=== PATIENT | female | born 1940 | race Caucasian/White ===

== ENCOUNTER → 2018-03-25 13:45 | Outpatient (CLI) | payer OTHER, SELFPAY ==
--- NOTE | 2018-03-25 | DI.RAD.S_ITS ---
PROCEDURE: XR KNEE RT 3V INDICATIONS: PAIN IN RT KNEE TECHNIQUE: 3 views of the knee were acquired. COMPARISON: None. FINDINGS: Bones: No fractures or dislocations. No suspicious bony lesions. Soft tissues: No joint effusion. No suspicious soft tissue calcifications. IMPRESSION: No trauma found. Slight medial compartment joint space thinning incidentally noted. Dictated by: Shree Sanz M.D. on 03/25/2018 at 14:22 Approved by: Shree Sanz M.D. on 03/25/2018 at 14:23
== END ==
PROVIDERS: PCP Physician Assistant; Visit Provider Physician Assistant
DX: M25.561 Pain in right knee (principal)
CPT/HCPCS: 73562

== ENCOUNTER 2018-05-17 09:45 | Outpatient (RCR) | payer OTHER, SELFPAY ==
--- NOTE | 2018-05-06 15:28 | PT.OPPOC ---
Current Diagnoses Pain in right knee (05/06/18) Provider Visit Care Team Role Provider Type Rowena Lundy PA-C Attending Provider Advanced Shoe Lining Fitter Primary Care Provider Specialty: Internal Medicine Address: [address] [place] [address], [id number] Email: Plan Of Care PT-OP-T Assessment and Plan Start: 05/06/18 07:35 Freq: Status: Active Protocol: Document 05/06/18 13:45 AMB (Rec: 05/08/18 15:26 AMB [email or web address]) Physical Therapy Assessment Rehab Potential Rehabilitation Potential Good Evaluation Complexity Number of Personal Factors/Comorbidities 1-2 Number of Body Systems Impaired 3 Clinical Presentation at Evaluation Stable Impairments Impairments Pain ROM Strength Goals Three Impairment Gait Manager Business Information Goal (LTG) Alf will walk for 3 miles with 1/10 knee pain or less. LTG Duration 10 weeks Two Impairment Strength Short Term Goal (STG) Alf will increase her strength so that she can perform a full squat without an increase in knee pain. STG Duration 5 weeks Manager Business Information Goal (LTG) Alf will increase her strength so that she can ascend and descend a flight of stairs with 1/10 knee pain or less. LTG Duration 10 weeks One Impairment ROM Short Term Goal (STG) Alf will increase her right knee AROM to 135 degrees of flexion. STG Duration 5 weeks Assessment Summary Assessment Alf attends physical therapy with likely patellar tendonitis. She does have right quad weakness due to inhibition from pain, difficulty with squatting, and pain with extended walking/ hiking. She will benefit from physical therapy to reduce the inflammation and improve her strength so that she can return to her previoulsy active lifestyle. Physical Therapy Plan Frequency and Duration Frequency of Treatment 1x/Week Duration of Treatment 10 weeks Plan of Care Start Date 05/06/18 Plan of Care End Date 07/15/18 Therapeutic Interventions Therapeutic Interventions Gait Training Home Exercise Program Joint Mobilizations Manual Therapy Neuromuscular Re-education Self-Care/Home Management Taping Therapeutic Activities Therapeutic Exercises Modalities Cold Pack/Ice Massage Electric Stimulation Hot Packs Ultrasound Next Visit Focus/Plan Next Note Type Treatment Note Next Visit Plan Quad strengthening without increasing inflammation/ irritation of right knee. Can look at hip/foot mechanics as necessary. Plan of Care Dates Plan of Care Start Date 05/06/18 Plan of Care End Date 07/15/18 Please Sign and Return: I have reviewed this Plan of Care and certify that the skilled therapy services above are required to meet the patient?s needs. Physician Signature Date Printed Name and Credentials Clinical Instructor Signature Printed Name and Credentials
--- NOTE | 2018-05-08 15:27 | PT.OIE ---
Current Diagnoses Pain in right knee (05/06/18) Provider Visit Care Team Role Provider Type Rowena Lundy PA-C Attending Provider Advanced Electrician'S Assistant Primary Care Provider Specialty: Internal Medicine Address: [address] [place] [address], [facility] Email: Physical Therapy Initial Evaluation PT-OP-A Visit Information Start: 05/06/18 07:35 Freq: Status: Active Protocol: Document 05/06/18 13:45 AMB (Rec: 05/08/18 15:11 AMB [email or web address]) Out-Patient Physical Therapy Visit Information Visit Information Visit Type Initial Evaluation Visit Start Time 13:45 Visit Stop Time 14:30 Total Visit Minutes 45 Visit Number 1 PT-OP-B Current Condition Start: 05/06/18 07:35 Freq: Status: Active Protocol: Document 05/06/18 13:45 AMB (Rec: 05/08/18 15:11 AMB [email or web address]) Current Condition History of Current Condition Onset Date 2 months ago Current Complaints Right knee pain History of Current Condition Alf attends physical therapy due to right knee pain that began after lifting boxes to clean up her brother' s house and going up and down stairs all day. It got better for awhile but now it is plateaued. Usually she works out with a personal support worker 2x /week, and walks, but she has had to reduce her walking due to the pain. Bending the knee and squatting hurt. Denies popping, locking, clicking. Prior Treatments and Tests X-ray showed slight medial joint space narrowing, otherwise negative Prior Functional Status Baseline Function- ADL's Independent Baseline Function- Mobility Independent Baseline Function- Recreation/Hobbies Walking 5 miles/day Current Functional Impairments (Reported) Functional Limitations- Recreation/ Limits walking to at most 1 Hobbies mile/day due to pain Personal Factors Other Personal Factors That May Effect Distant history of breast Therapy/Recovery cancer with mastectomy PT-OP-C Subjective Start: 05/06/18 07:35 Freq: Status: Active Protocol: Document 05/06/18 13:45 AMB (Rec: 05/08/18 15:11 AMB [email or web address]) Patient Questionnaires Lower Extremity Functional Scale LEFS Impairment 40 to 59% Impaired (Score 32- 47) OP-PT Pain Assessment Pain Assessment Grid Paper Pain Assessment Grid Completed Yes Location Right Anterior Knee Pain Location Details patellar Intensity 3 Scale Used Numeric (1 - 10) PT-OP-G Mobility & Gait Start: 05/06/18 07:35 Freq: Status: Active Protocol: Document 05/06/18 13:45 AMB (Rec: 05/08/18 15:17 AMB [email or web address]) OP Gait Assessment Gait Gait Assistance Required: Independent Assistive Devices Assistive Device None Gait Deviations General Gait Pattern Within Normal Limits PT-OP-J Posture/Palpation/Skin Start: 05/06/18 07:35 Freq: Status: Active Protocol: Document 05/06/18 13:45 AMB (Rec: 05/08/18 15:17 AMB [email or web address]) Palpation Assessment Location One Palpation Location R knee Palpation Details mild tenderness at patellar tendon, no pain with patellar mobilization, no palpable edema posteriorly in comparison to the left. PT-OP-K Range of Motion Start: 05/06/18 07:35 Freq: Status: Active Protocol: Document 05/06/18 13:45 AMB (Rec: 05/08/18 15:17 AMB [email or web address]) Knee Goniometric Range of Motion Knee Measured in Degrees Right Flexion Active (degrees) 130 Extension Active (degrees) 0 Left Flexion Active (degrees) 135 Extension Active (degrees) 0 PT-OP-L Special Tests Start: 05/08/18 15:12 Freq: Status: Active Protocol: Document 05/06/18 13:45 AMB (Rec: 05/08/18 15:17 AMB [email or web address]) Special Tests Knee Special Tests Golden Test Test Results negative PT-OP-M Strength Start: 05/06/18 07:35 Freq: Status: Active Protocol: Document 05/06/18 13:45 AMB (Rec: 05/08/18 15:17 AMB [email or web address]) Knee Strength Knee Manual Muscle Testing Right Flexion (S2) 4+ Good+ Extension (L3) 4 Good Comments painful with extension Left Flexion (S2) 5 Normal Extension (L3) 5 Normal PT-OP-Q Treatments Start: 05/06/18 07:35 Freq: Status: Active Protocol: Document 05/06/18 13:45 AMB (Rec: 05/08/18 15:19 AMB [email or web address]) Therapeutic Exercises Supine Exercises 3 Supine Exercise Name bridge Reps/Minutes 2x10 2 Supine Exercise Name single knee to chest Reps/Minutes 30x2 1 Supine Exercise Name hamstring stretch Reps/Minutes 30x2 Standing Exercises 1 Standing Exercise Name wall squat Reps/Minutes 5x2 Manual Therapy Treatment Taping 1 Body Location R patellar tendon Type of Tape Kinesio Tape Comments I strip PT-OP-T Assessment and Plan Start: 05/06/18 07:35 Freq: Status: Active Protocol: Document 05/06/18 13:45 AMB (Rec: 05/08/18 15:26 AMB [email or web address]) Physical Therapy Assessment Rehab Potential Rehabilitation Potential Good Evaluation Complexity Number of Personal Factors/Comorbidities 1-2 Number of Body Systems Impaired 3 Clinical Presentation at Evaluation Stable Impairments Impairments Pain ROM Strength Goals Three Impairment Gait Customer Experience Leader Goal (LTG) Alf will walk for 3 miles with 1/10 knee pain or less. LTG Duration 10 weeks Two Impairment Strength Short Term Goal (STG) Alf will increase her strength so that she can perform a full squat without an increase in knee pain. STG Duration 5 weeks Skilled Nursing Goal (LTG) Alf will increase her strength so that she can ascend and descend a flight of stairs with 1/10 knee pain or less. LTG Duration 10 weeks One Impairment ROM Short Term Goal (STG) Alf will increase her right knee AROM to 135 degrees of flexion. STG Duration 5 weeks Assessment Summary Assessment Alf attends physical therapy with likely patellar tendonitis. She does have right quad weakness due to inhibition from pain, difficulty with squatting, and pain with extended walking/ hiking. She will benefit from physical therapy to reduce the inflammation and improve her strength so that she can return to her previously active lifestyle. Physical Therapy Plan Frequency and Duration Frequency of Treatment 1x/Week Duration of Treatment 10 weeks Plan of Care Start Date 05/06/18 Plan of Care End Date 07/15/18 Therapeutic Interventions Therapeutic Interventions Gait Training Home Exercise Program Joint Mobilizations Manual Therapy Neuromuscular Re-education Self-Care/Home Management Taping Therapeutic Activities Therapeutic Exercises Modalities Cold Pack/Ice Massage Electric Stimulation Hot Packs Ultrasound Next Visit Focus/Plan Next Note Type Treatment Note Next Visit Plan Quad strengthening without increasing inflammation/ irritation of right knee. Can look at hip/foot mechanics as necessary.
--- NOTE | 2018-05-17 16:21 | PT.OTN ---
Current Diagnoses Pain in right knee (05/17/18) Physical Therapy Treatment Note PT-OP-A Visit Information Start: 05/06/18 07:35 Freq: Status: Active Protocol: Document 05/17/18 09:45 AMB (Rec: 05/17/18 10:34 AMB [email or web address]) Out-Patient Physical Therapy Visit Information Visit Information Visit Type Discharge Summary Visit Start Time 09:45 Visit Stop Time 10:30 Total Visit Minutes 45 Visit Number 2 PT-OP-B Current Condition Start: 05/06/18 07:35 Freq: Status: Active Protocol: Document 05/06/18 13:45 AMB (Rec: 05/08/18 15:11 AMB [email or web address]) Current Condition History of Current Condition Onset Date 2 months ago Current Complaints Right knee pain History of Current Condition Alf attends physical therapy due to right knee pain that began after lifting boxes to clean up her brother' s house and going up and down stairs all day. It got better for awhile but now it is platueaed. Usually she works out with a service trainer 2x /week, and walks, but she has had to reduce her walking due to the pain. Bending the knee and squatting hurt. Denies popping, locking, clicking. Prior Treatments and Tests X-ray showed slight medial joint space narrowing, otherwise negative Prior Functional Status Baseline Function- ADL's Independent Baseline Function- Mobility Independent Baseline Function- Recreation/Hobbies Walking 5 miles/day Current Functional Impairments (Reported) Functional Limitations- Recreation/ Limits walking to at most 1 Hobbies mile/day due to pain Personal Factors Other Personal Factors That May Effect Distant history of breast Therapy/Recovery cancer with mastectomy PT-OP-C Subjective Start: 05/06/18 07:35 Freq: Status: Active Protocol: Document 05/17/18 09:45 AMB (Rec: 05/17/18 10:34 AMB [email or web address]) OP-PT Subjective Patient Comments Patient Comments Pt reports she is doing well, she is back to walking 5 miles without pain. She feel the tape was helpful and is ready to be discharged. PT-OP-G Mobility & Gait Start: 05/06/18 07:35 Freq: Status: Active Protocol: Document 05/06/18 13:45 AMB (Rec: 05/08/18 15:17 AMB [email or web address]) OP Gait Assessment Gait Gait Assistance Required: Independent Assistive Devices Assistive Device None Gait Deviations General Gait Pattern Within Normal Limits PT-OP-J Posture/Palpation/Skin Start: 05/06/18 07:35 Freq: Status: Active Protocol: Document 05/06/18 13:45 AMB (Rec: 05/08/18 15:17 AMB [email or web address]) Palpation Assessment Location One Palpation Location R knee Palpation Details mild tenderness at patellar tendon, no pain with patellar mobilization, no palpable edema posteriorly in comparsion to the left. PT-OP-K Range of Motion Start: 05/06/18 07:35 Freq: Status: Active Protocol: Document 05/06/18 13:45 AMB (Rec: 05/08/18 15:17 AMB [email or web address]) Knee Goniometric Range of Motion Knee Measured in Degrees Right Flexion Active (degrees) 130 Extension Active (degrees) 0 Left Flexion Active (degrees) 135 Extension Active (degrees) 0 PT-OP-L Special Tests Start: 05/08/18 15:12 Freq: Status: Active Protocol: Document 05/06/18 13:45 AMB (Rec: 05/08/18 15:17 AMB [email or web address]) Special Tests Knee Special Tests Golden Test Test Results negative PT-OP-M Strength Start: 05/06/18 07:35 Freq: Status: Active Protocol: Document 05/06/18 13:45 AMB (Rec: 05/08/18 15:17 AMB [email or web address]) Knee Strength Knee Manual Muscle Testing Right Flexion (S2) 4+ Good+ Extension (L3) 4 Good Comments painful with extension Left Flexion (S2) 5 Normal Extension (L3) 5 Normal PT-OP-Q Treatments Start: 05/06/18 07:35 Freq: Status: Active Protocol: Document 05/17/18 09:45 AMB (Rec: 05/17/18 10:34 AMB [email or web address]) Cardio Equipment Treadmill Duration (Minutes) 5 Speed 2 Incline 0 Therapeutic Exercises Supine Exercises 2 Supine Exercise Name single knee to chest Reps/Minutes 30x2 1 Supine Exercise Name hamstring stretch Reps/Minutes 30x2 Standing Exercises 5 Standing Exercise Name stair step ups Reps/Minutes 2x10 4 Standing Exercise Name forward lunges Reps/Minutes 2x10 3 Standing Exercise Name squats Reps/Minutes 2x10 2 Standing Exercise Name calf stretch Reps/Minutes 30x2 ARCHIE PT-OP-T Assessment and Plan Start: 05/06/18 07:35 Freq: Status: Active Protocol: Document 05/17/18 09:45 AMB (Rec: 05/17/18 10:34 AMB [email or web address]) Physical Therapy Assessment Goals Three Impairment Gait Half-Way Goal (LTG) Alf will walk for 3 miles with 1/10 knee pain or less. LTG Duration MET Two Impairment Strength Short Term Goal (STG) Alf will increase her strength so that she can perform a full squat without an increase in knee pain. STG Duration MET Half-Way Goal (LTG) Alf will increase her strength so that she can ascend and descend a flight of stairs with 1/10 knee pain or less. LTG Duration MET One Impairment ROM Short Term Goal (STG) Alf will increase her right knee AROM to 135 degrees of flexion. STG Duration Partially met, PROM 135 Assessment Summary Assessment Alf feels that she is ready for discharge. She denies pain with walking, stairs. She has light discomfort with lunges and squats, but feels that she can work through that with her regular exercise, she does not have any lingering discomfort with the squats after she is done doing them. Having met all her goals she is now discharged. Physical Therapy Plan Discharge Physical Therapy Discharge Reasons Goals Met
== END 2018-05-17 12:19 | disposition home or self-care (01) ==
LOC: PHYS 09:45
PROVIDERS: PCP Physician Assistant; Visit Provider Physician Assistant
DX: M25.561 Pain in right knee (principal)
CPT/HCPCS: 97110; 97161

== ENCOUNTER → 2019-02-06 15:04 | Outpatient (ROUT) | payer OTHER, SELFPAY ==
[2019-02-06 15:41] LABS: Add Manual Diff / Slide Review NO; Basophils Absolute Auto 0 /uL (0-100); Basophils Percent Auto 0.8 % (0-2); Eosinophils Absolute Auto 100 /uL (0-450); Hematocrit 38.6 % (36-46); Hemoglobin 13.2 g/dL (12.0-16.0); Lymphocytes Absolute Auto 700 /uL (1100-4500); Lymphocytes Percent Auto 14.1 % (25-40); Mean Corpuscular HGB Conc 34.1 % (30-36); Monocytes Absolute Auto 400 /uL (0-900); Monocytes Percent Auto 7.1 % (3-14); Neutrophils Absolute Auto 4000 /uL (1500-7000); Platelet Count 202 X10^3/uL (150-400); Red Blood Cell Count 4.24 X10^6/uL (4.0-5.2); White Blood Cell Count 5.2 X10^3/uL (4.5-11.0)
[2019-02-06 16:03] LABS: Alanine Aminotransferase 12 IU/L (<35); Albumin Globulin Ratio 1.7 (1.0-2.8); Alkaline Phosphatase 72 U/L (38-126); Aspartate Aminotransferase 20 IU/L (14-36); Bilirubin Total 0.3 mg/dL (0.2-1.3); Blood Urea Nitrogen 20 mg/dL (7-17); Calcium 9.5 mg/dL (8.4-10.2); Carbon Dioxide 31 mmol/L (22-32); Chloride 105 mmol/L (98-107); Cholesterol 147 mg/dL (140-199); Estimated Glomerular Filt Rate 53.8 mL/min (>60); Globulin 2.3 g/dL (1.7-4.1); Glucose 89 mg/dL (80-110); HDL Cholesterol 41 mg/dL (40-60); HEMOLYSIS < 15 (0-50); LDL Cholesterol Calculated 85 mg/dL (<100); Potassium 4.3 mmol/L (3.4-5.1); Sodium 141 mmol/L (137-145); Total Protein 6.3 g/dL (6.3-8.2); Triglycerides 106 mg/dL (35-150)
== END ==
PROVIDERS: PCP Physician Assistant; Visit Provider Physician Assistant
DX: E78.2 Mixed hyperlipidemia (principal)
CPT/HCPCS: 80053; 80061; 85025

== ENCOUNTER → 2019-02-20 11:02 | Outpatient (CLI) | payer OTHER, SELFPAY ==
[2019-02-20 12:18] LABS: Add Manual Diff / Slide Review NO; Basophils Absolute Auto 0 /uL (0-100); Basophils Percent Auto 0.7 % (0-2); Eosinophils Absolute Auto 0 /uL (0-450); Eosinophils Percent Auto 0.9 % (2-4); Hematocrit 40.9 % (36-46); Hemoglobin 13.9 g/dL (12.0-16.0); Lymphocytes Absolute Auto 1000 /uL (1100-4500); Lymphocytes Percent Auto 19.1 % (25-40); Mean Corpuscular Hemoglobin 31.1 PG (26-34); Mean Corpuscular Volume 91.7 fL (80-100); Monocytes Absolute Auto 400 /uL (0-900); Monocytes Percent Auto 7.8 % (3-14); Neutrophils Absolute Auto 3800 /uL (1500-7000); Neutrophils Percent Auto 71.5 % (50-75); Platelet Count 232 X10^3/uL (150-400); Red Blood Cell Count 4.46 X10^6/uL (4.0-5.2); Red Cell Distribution Width 12.9 % (11.6-14.8); White Blood Cell Count 5.3 X10^3/uL (4.5-11.0)
== END ==
PROVIDERS: PCP Physician Assistant; Visit Provider Physician Assistant
DX: D72.810 Lymphocytopenia (principal)
CPT/HCPCS: 36415; 85025

== ENCOUNTER → 2019-05-02 13:17 | Outpatient (CLI) | payer MEDICARE, OTHER, SELFPAY ==
[2019-05-02 13:58] LABS: Add Manual Diff / Slide Review NO; Basophils Absolute Auto 0 /uL (0-100); Basophils Percent Auto 0.7 % (0-2); Eosinophils Absolute Auto 0 /uL (0-450); Eosinophils Percent Auto 0.6 % (2-4); Hematocrit 39.2 % (36-46); Hemoglobin 13.4 g/dL (12.0-16.0); Lymphocytes Absolute Auto 1000 /uL (1100-4500); Mean Corpuscular HGB Conc 34.1 % (30-36); Mean Corpuscular Hemoglobin 31.2 PG (26-34); Mean Corpuscular Volume 91.5 fL (80-100); Monocytes Absolute Auto 500 /uL (0-900); Monocytes Percent Auto 9.9 % (3-14); Neutrophils Absolute Auto 3200 /uL (1500-7000); Neutrophils Percent Auto 67.8 % (50-75); Platelet Count 205 X10^3/uL (150-400); Red Blood Cell Count 4.28 X10^6/uL (4.0-5.2); Red Cell Distribution Width 12.9 % (11.6-14.8); White Blood Cell Count 4.8 X10^3/uL (4.5-11.0)
== END ==
PROVIDERS: PCP Physician Assistant; Referring Provider Physician Assistant; Visit Provider Physician Assistant
DX: D72.819 Decreased white blood cell count, unspecified (principal)
CPT/HCPCS: 36415; 85025

== ENCOUNTER → 2019-08-21 12:45 | Outpatient (CLI) | payer MEDICARE, OTHER, SELFPAY ==
[2019-08-21 14:09] LABS: Add Manual Diff / Slide Review NO; Basophils Absolute Auto 100 /uL (0-100); Basophils Percent Auto 0.8 % (0-2); Eosinophils Absolute Auto 100 /uL (0-450); Eosinophils Percent Auto 1.1 % (2-4); Hematocrit 37.6 % (36-46); Hemoglobin 13.2 g/dL (12.0-16.0); Lymphocytes Absolute Auto 1100 /uL (1100-4500); Lymphocytes Percent Auto 17.7 % (25-40); Mean Corpuscular Hemoglobin 32.1 PG (26-34); Mean Corpuscular Volume 91.6 fL (80-100); Monocytes Absolute Auto 500 /uL (0-900); Monocytes Percent Auto 8.6 % (3-14); Neutrophils Absolute Auto 4600 /uL (1500-7000); Neutrophils Percent Auto 71.8 % (50-75); Platelet Count 199 X10^3/uL (150-400); Red Cell Distribution Width 12.4 % (11.6-14.8); White Blood Cell Count 6.4 X10^3/uL (4.5-11.0)
== END ==
PROVIDERS: PCP Physician Assistant; Referring Provider Physician Assistant; Visit Provider Physician Assistant
DX: D72.810 Lymphocytopenia (principal)
CPT/HCPCS: 36415; 85025

== ENCOUNTER → 2023-07-27 08:50 | Outpatient (CLI) | payer MEDICARE, OTHER, SELFPAY ==
--- NOTE | 2023-07-27 08:53 | DI.CT.S_ITS ---
PROCEDURE: CT KIDNEY URETER BLADDER (KUB) INDICATIONS: HEMATURIA TECHNIQUE: Axial sections were acquired from the lung bases to the pubic symphysis. Coronal and sagittal reformats were performed. For radiation dose reduction, the following was used: automated exposure control, adjustment of mA and/or kV according to patient size. COMPARISON: None. FINDINGS: Image quality: Diagnostic. Lower Chest: There are a few small pleural-based nodules in the right lower lobe measuring about 4 mm each. No pleural effusions. Mild pericardial thickening. URINARY: Right Kidney: No stones or hydronephrosis. No perinephric inflammation. Right Ureter: No hydroureter, ureteral calculus, or periureteric inflammation. Left Kidney: No stones or hydronephrosis. No perinephric inflammation. An exophytic 1.2 cm cyst arises from the anterior lower pole. Left Ureter: No hydroureter, ureteral calculus, or periureteric inflammation. Bladder: There is a heterogeneous intraluminal mass along the right posterior aspect of the urinary bladder with minimal central punctate, amorphous calcification. This measures about 2.3 x 2.3 cm bladder wall is otherwise not well evaluated due to bladder decompression. ABDOMEN: Liver: 1.6 cm hypodensity anteriorly in the left hepatic lobe, likely cyst or hemangioma. Gallbladder: Surgically absent. Biliary ducts: No biliary dilation. Pancreas: No ductal dilation. Spleen: Size is within normal limits. Adrenal Glands: No adrenal nodules. Stomach and Bowel: Stomach and small bowel loops are normal caliber. Normal appendix. Normal colon. Peritoneum: No abnormal intraperitoneal fluid. No free air. Ventral Wall: No hernia. Abdominal Nodes: No enlarged retroperitoneal or mesenteric lymph nodes. Vessels: Aorta and inferior vena cava are normal in size. PELVIS: Pelvic Organs: Absent uterus. Ovaries are not seen. Pelvic Nodes: Unremarkable. Miscellaneous: No inguinal hernias are seen. Bones: Unremarkable. IMPRESSION: 2.3 cm intraluminal bladder mass containing small amount calcification. Malignancy is suspected, although differential diagnosis includes chronic clot or benign debris. Cystoscopy is recommended. No obstructive uropathy. No adenopathy. A few nonspecific pleural-based right lung nodules. In the setting of possible malignancy, differential diagnosis includes metastatic disease. Statistically, these are more likely post infectious or inflammatory. Continued attention on subsequent imaging recommended. Dictated by: Aleisha Quezada M.D. on 07/27/2023 at 10:43 Approved by: Aleisha Quezada M.D. on 07/27/2023 at 10:57
== END ==
PROVIDERS: PCP Physician Assistant; Referring Provider Student in an Organized Health Care Education/Training Program; Visit Provider Student in an Organized Health Care Education/Training Program
DX: N32.9 Bladder disorder, unspecified (principal); R31.9 Hematuria, unspecified; R91.8 Other nonspecific abnormal finding of lung field; N28.1 Cyst of kidney, acquired; R80.9 Proteinuria, unspecified; Z87.891 Personal history of nicotine dependence
CPT/HCPCS: 74176

== ENCOUNTER → 2023-08-01 12:44 | Outpatient (CLI) | payer MEDICARE, OTHER, SELFPAY ==
--- NOTE | 2023-08-01 | DI.CT.S_ITS ---
PROCEDURE: CT CHEST WO CON INDICATIONS: lung nodules TECHNIQUE: Noncontrast 5 mm thick sections acquired from the pulmonary apices to the posterior costophrenic angles. 1 mm lung window, 5 mm thick coronal and sagittal and 7 mm axial MIP reformats were then acquired. For radiation dose reduction, the following was used: automated exposure control, adjustment of mA and/or kV according to patient size. COMPARISON: [facility], CT, CT KIDNEY URETER BLADDER (KUB), 07/27/2023, 9:01. FINDINGS: Image quality: Diagnostic. Lower Neck: No enlarged lymph nodes. Thyroid: Thyroid gland appears enlarged with a left lower lobe nodule which measures 1.6 x 1.4 cm (2/10). Axillae: No enlarged lymph nodes. Chest Wall: Left mastectomy. Bones: No acute fractures. No aggressive appearing lytic or blastic osseous lesions. Moderate multilevel degenerative changes of the spine. Lungs and Pleura: No pneumothorax or pleural effusions. Compared to CT KUB dated July 27, 2023, stable bilateral lower lobe subpleural solid pulmonary nodulesmeasuring up to 4 mm (3/191, 201, 208, 271) as well as a left lower lobe solid, noncalcified pulmonary nodule measuring 3 mm (3/174). Left eloisa fissure solid pulmonary nodule versus lymph node measuring 3 mm (3/163). Linear atelectasis/scar in the right upper lobe and middle lobe. Patent central airways. Heart: Heart size is mildly enlarged with left atrial enlargement. No significant coronary vessel calcifications. No pericardial effusion. Thoracic Vessels: The aorta and pulmonary arteries demonstrate normal size. Minimal calcification of the thoracic aorta. Mediastinum and Tata: No enlarged lymph nodes. Esophagus: No wall thickening. No hiatal hernia. Upper Abdomen: Cholecystectomy clips. Calcification of the abdominal aorta. IMPRESSION: 1. Compared to CT KUB dated July 27, 2023, stable bilateral lower lobe subpleural solid pulmonary nodules and left lower lobe solid pulmonary nodule. 2. Additional left perifissure solid pulmonary nodule versus lymph node measuring 3 mm which was previously excluded from the field of view. Attention on follow-up imaging. 3. Thyroid appears diffusely enlarged with a left lower lobe nodule measuring 1.6 x 1.4 cm. Recommend a thyroid ultrasound for further evaluation. Dictated by: Ophelia Rios M.D. on 08/01/2023 at 20:06 Approved by: Ophelia Rios M.D. on 08/01/2023 at 20:14
== END ==
LOC: CT 12:47
PROVIDERS: PCP Physician Assistant; Referring Provider Physician Assistant; Visit Provider Physician Assistant
DX: E04.1 Nontoxic single thyroid nodule (principal); R91.8 Other nonspecific abnormal finding of lung field
CPT/HCPCS: 71250

== ENCOUNTER → 2023-08-06 15:43 | Outpatient (CLI) | payer MEDICARE, OTHER, SELFPAY | PROVIDERS: PCP Physician Assistant; Visit Provider Urology | DX: R31.9 Hematuria, unspecified (principal) | CPT/HCPCS: 87086 ==

== ENCOUNTER 2023-08-17 06:06 | Day surgery (SDC) | payer MEDICARE, OTHER, SELFPAY ==
[2023-08-17] VITALS (8 sets, daily range): BP systolic 108–141; BP diastolic 48–66; PULSE 67–115; RESP 13–21; TEMP 36.2–36.8; O2SAT 92–98; BMI 26.1
--- NOTE | 2023-08-17 | PATH_ITS ---
[facility] Accession Number: [id number] No. of containers..01 Tissue . 01 Material submitted: . bladder - RIGHT POSTERIOR LATERAL BLADDER TUMOR . 01 Diagnosis: RIGHT POSTERIOR LATERAL BLADDER TUMOR, TRANSURETHRAL RESECTION BLADDER TUMOR: Papillary urothelial carcinoma, noninvasive. Please see cancer case summary. . . CANCER CASE SUMMARY: . Specimen Procedure: Transurethral resection of bladder (TURBT). . Tumor Tumor site: Right posterior lateral bladder wall. Histologic type: Papillary urothelial carcinoma, noninvasive. Histologic grade: High grade. Tumor extent: Noninvasive papillary carcinoma. Lymphatic and/or vascular invasion: Not identified. Lamina propria involvement: Not identified. Muscularis propria: Not identified. . Additional findings: Cautery artifact; areas of necrosis and degeneration. [facility] 08/20/2023 1146 Local . 01 Comment: As part of routine air quality instrument specialist, this case was also reviewed by Dr. Michele Gimenez, who agrees with the interpretation. . Dr. Elizabeth Ortega discussed results with Dr. José Manuel Gamez's nurse, on 08/20/2023 at approximately 11:22 a.m. . 01 Electronically signed: . Elizabeth Ortega MD, Pathologist NPI- [id number] . 01 Gross description: . Received in formalin with two patient identifiers and right posterior lateral bladder tumor, are multiple oliver soft tissue fragments aggregating to 3.5 x 2.8 x 0.3 cm. Filtered and submitted entirely in A1-A2. ([id number]) /MRV 08/18/2023 1849 Local . 01 Microscopic: . Immunostains are performed to evaluate the cells of interest. The control stains showed appropriate reactivity. . Block A1 Synapsophysin: Negative Chromogranin: Negative GATA3: Positive p63: Positive . Block A2: Synaptophysin: Negative Chromogranin: Negative p63: Positive . Findings support a urothelial origin and mitigate against the presence of a small cell tumor component. . * This test was developed and its performance characteristics determined by [employer]. It has not been cleared or approved by the U.S. Food and Drug Administration. The FDA has determined that such clearance or approval is not necessary. This test is used for clinical purposes. It should not be regarded as investigational or for research. . 01 Pathologist provided ICD-10: C67.9 . 01 CPT . 362400, H63938 Specimen Comment: A courtesy copy of this report has been sent to [phone] Performed at: [address] [address], [place], [place] [id number] MD Raulito Conroy MD Phone: [phone]
[2023-08-17] MEDS: ACETAMINOPHEN 325 MG TABLET 975 MG PO (06:56)
[2023-08-17] MEDS: LACTATED RINGERS 1,000 ML 42 ML IV (06:57)
--- NOTE | 2023-08-17 07:35 | PM.PREOP ---
Pre-operative Note COVID-19 COVID-19 status: Not tested Interval Note History & Physical reviewed/Exam performed by Physician: Yes Changes to H&P: No
[2023-08-17] MEDS: CEFAZOLIN 2 GM/100 ML PREMIX 100 ML IV (07:54)
--- NOTE | 2023-08-17 08:05 | SUR.OPER ---
Lithotomy on padded OR bed, head on pillow, arms secured on padded arm boards at <90 degrees abduction. Legs secured in padded yellow fins stirrups.
[2023-08-17] MEDS: WATER FOR INJECTION,STERILE 20 ML, mitoMYcin 20 MG INTRAVESIC (08:20)
--- NOTE | 2023-08-17 08:30 | PM.OP.1 ---
Procedure & Clinicians Procedure: Transurethral resection of bladder tumor medium with instillation of mitomycin C and Gill catheter placement Same procedure as scheduled: Yes Indications: This 83-year-old female was found on CT scan what appeared to be a mass within the right bladder. This was confirmed via flexible cystoscopy in the office where it was observed that she had in the right posterolateral aspect of the bladder 2 tumors, 1 which was right at 3 cm to 3-1/2 cm and another tumor was 2 cm in diameter. She presents this time for resection of the tumors and instillation of mitomycin C. Surgeon: Pool Georges Click Yes if Unassisted: Yes Anesthesia Type: General Operative Notes Findings: External genitalia showed some signs of atrophic vaginitis. The introitus was somewhat narrowed urethral meatus was normal, the urethra was normal along its length with normal mucosa. The ureteral orifices were in normal position with clear efflux. Again on the posterior lateral right there were 2 tumors 1 which was smaller about 2 cm and another which was larger which is about 3-1/2 cm they did come down to a stalk and appeared to be low-grade they did have superficial calcifications dispersed along there periphery. The remainder of the bladder mucosa was normal. There was some neovascularity coming into the base of each tumor which was cauterized. No other abnormalities were noted. A 20 [address] was left in place with 15 cc in the balloon. Mitomycin C was instilled within the bladder via this catheter. Closure Type: not applicable Specimen(s): other (Bladder tumor fragments) Prosthetic devices, grafts, tissues, transplants, or devices: [address] 5 [address] Gill catheter with 15 cc in the balloon was left through the urethra and into the bladder. Applied: catheter Estimated Blood Loss (mL): 5 Blood products transfused: none Procedure in detail: Procedure in detail: After informed consent was obtained, the patient was identified brought to the operating room where she was placed in his supine position on the table. Once there anesthesia was induced and maintained. Ensuring an adequate level of anesthesia the patient was transitioned to the lithotomy position where she was prepped, draped and prepared for Transurethral procedure. Ensuring an adequate level of anesthesia and after time-out, prepping and draping and administration of antibiotics the continuous-flow resectoscope was inserted through the urethra and into the bladder under direct vision. Cystoscopy was performed the tumors were identified. The direct vision obturator was exchanged for the working element and the tumors were sequentially resected down to their base. The largest tumor being resected 1st followed by the smaller tumor. There base was then fulgurated as well as a margin and the neoplastic neovascularity was also fulgurated for a margin of about a cm around the base of each tumor. At this point the fragments were then all evacuated and collected put in formalin forward to pathology for pathologic examination. The bladder was then filled drained filled drained filled drained check for hemostasis which was found to be good. The bladder was then left full the scope was removed and the catheter passed through the urethra in the bladder without difficulty the balloon filled with 15 cc sterile water in the bladder with lately drained. Then using the chemotherapeutic sealed plug the mitomycin was instilled in the bladder and the catheter plug left in place. At this point having tolerated the procedure well the patient was awakened to be transferred to the postanesthesia care unit for recovery and mitomycin dwell time. There were no complications Complications: none Post-operative Condition: stable Disposition: PACU Plan for aftercare: After mitomycin dwell time patient will be discharged home with a Gill catheter to follow-up in my office in approximately 10 days.
== END 2023-08-17 11:32 | disposition home or self-care (01) ==
PROVIDERS: PCP Physician Assistant; Referring Provider Urology; Visit Provider Urology
PROC: 0TBB8ZZ Excision of Bladder, Via Natural or Artificial Opening Endoscopic (ICD-10-PCS; CPT 52235; principal; 2023-08-17 07:45)
DX: C67.9 Malignant neoplasm of bladder, unspecified (principal)
CPT/HCPCS: 52235; J0330; J0690; J1100; J2405; J2704; J3010; J9280

== ENCOUNTER → 2023-08-20 09:20 | Outpatient (CLI) | payer MEDICARE, OTHER, SELFPAY ==
--- NOTE | 2023-08-20 | DI.US.S_ITS ---
PROCEDURE: US THYROID INDICATIONS: NODULES ON CT TECHNIQUE: Real-time scanning was performed of the thyroid gland, with image documentation. COMPARISON: [facility], CT, CT CHEST WO CON, 08/01/2023, 12:59. FINDINGS: Thyroid: Right lobe measures 6.1 x 2.6 x 2.5 cm. Left lobe measures 5.5 x 2.3 x 2.0 cm. Isthmus is 3.6 cm thick. Echotexture is diffusely heterogeneous. Nodule number: 1 Location: Left inferior Size: 1.6 x 1.5 x 1.5 cm. Composition: Solid Echogenicity: Hypoechoic Shape: wider than tall. Margins: Smooth Echogenic foci: None Total points: 4 ACR TI-RADS category: 4 Nodule number: 2 Location: Left mid Size: 1.6 x 1.8 x 1.5cm. Composition: Solid Echogenicity: Hypoechoic Shape: wider than tall. Margins: Smooth Echogenic foci: Non Total points: 4 ACR TI-RADS category: 4 Nodule number: 3 Location: Right mid Size: 2.0 x 1.5 x 2.0 cm. Composition: Solid Echogenicity: Hypoechoic Shape: wider than tall. Margins: Smooth Echogenic foci: Non Total points: 4 ACR TI-RADS category: 4 Nodule number: 4 Location: Right mid Size: 1.2 x 2.1 x 1.6 cm. Composition: Solid Echogenicity: Hypoechoic Shape: wider than tall. Margins: Smooth Echogenic foci: None Total points: 4 ACR TI-RADS category: 4 IMPRESSION: All lesions above are considered category 4. FNA is recommended of lesions 2 and 3 given greater size. ACR TI-RADS definitions and recommendations: TI-RADS 1 (benign): 0 points. FNA not needed. TI-RADS 2 (not suspicious): 2 points. FNA not needed. TI-RADS 3 (mildly suspicious): 3 points. * FNA if 2.5 cm or larger, follow up if 1.5 cm or larger (at 1, 3, and 5 years). TI-RADS 4 (moderately suspicious): 4-6 points. * FNA if 1.5 cm or larger, follow up if 1 cm or larger (at 1, 2, 3, and 5 years). TI-RADS 5 (highly suspicious): 7 points or more. * FNA if 1 cm or larger, follow up if 0.5 cm or larger (every year for 5 years). Dictated by: Carolyn Alfaro M.D. on 08/20/2023 at 13:58 Approved by: Carolyn Alfaro M.D. on 08/20/2023 at 14:02
== END ==
PROVIDERS: PCP Physician Assistant; Referring Provider Physician Assistant; Visit Provider Physician Assistant
DX: E04.2 Nontoxic multinodular goiter (principal)
CPT/HCPCS: 76536

== ENCOUNTER → 2023-09-01 11:41 | Outpatient (CLI) | payer MEDICARE, OTHER, SELFPAY | PROVIDERS: PCP Physician Assistant; Visit Provider Urology | DX: R31.0 Gross hematuria (principal); Z87.440 Personal history of urinary (tract) infections | CPT/HCPCS: 87077; 87086 ==

== ENCOUNTER 2024-02-01 07:17 | Day surgery (SDC) | payer MEDICARE, OTHER, SELFPAY ==
[2024-01-31 13:03] VITALS: BMI 26.1
[2024-02-01] VITALS (9 sets, daily range): BP systolic 105–150; BP diastolic 53–80; PULSE 66–80; RESP 13–67; TEMP 36.3–37; O2SAT 93–98; BMI 28.1
--- NOTE | 2024-02-01 | PATH_ITS ---
[facility] Accession Number: [id number] No. of containers..01 Tissue . 01 Material submitted: . bladder - RIGHT POSTERIOR BLADDER TUMOR . 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 . CANCER CASE SUMMARY: Specimen Procedure: Transurethral resection of bladder tumor (TURBT). Tumor site: Right posterior bladder wall. Histologic type: Papillary carcinoma. Histologic grade: High grade and background of low grade. Tumor extent: No definite invasion into the subepithelial connective tissue/lamina propria. Lymphovascular invasion: Not identified. Lamina propria involvement: No definite involvement. Muscularis propria: Not present. MRV 02/03/2024 1620 Local . 01 Electronically signed: . Tyron Velásquez MD, Pathologist NPI- [id number] . 01 Gross description: . Received in formalin with two patient identifiers and right posterior bladder tumor, are multiple oliver soft tissue fragments admixed with mucoid material received on Telfa, aggregating to 1.7 x 0.9 x 0.3 cm. Filtered and submitted in A1. ([id number]) /MRV 02/02/2024 1813 Local . 01 Pathologist provided ICD-10: C67.9 . 01 CPT . 027545 Specimen Comment: A courtesy copy of this report has been sent to [phone] Performed at: [address] [id number] MD Raulito Conroy MD Phone: [phone]
[2024-02-01] MEDS: LACTATED RINGERS 1,000 ML 42 ML IV (07:58)
--- NOTE | 2024-02-01 08:38 | PM.PREOP ---
Pre-operative Note COVID-19 COVID-19 status: Not tested Interval Note History & Physical reviewed/Exam performed by Physician: Yes Changes to H&P: No
[2024-02-01] MEDS: CEFAZOLIN 2 GM/100 ML PREMIX 100 ML IV (09:02)
--- NOTE | 2024-02-01 09:19 | SUR.OPER ---
Lithotomy on padded OR bed, head on pillow, arms secured on padded arm boards at <90 degrees abduction. Legs secured in padded yellow fins stirrups.
--- NOTE | 2024-02-01 09:42 | PM.OP.1 ---
Procedure & Clinicians Procedure: Transurethral resection of bladder tumor (medium) with instillation of mitomycin and Gill catheter placement Same procedure as scheduled: Yes Indications: This 83-year-old female with a known history of urothelial carcinoma of the bladder came in for surveillance cystoscopy and was found to have a recurrent tumor actually 2 and number on the posterior right total size about 2-1/2 cm. She presents this time for resection and instillation of mitomycin. Surgeon: Pool Georges Click Yes if Unassisted: Yes Anesthesia Type: General Operative Notes Findings: Findings: External genitalia shows evidence of atrophic vaginitis there was introital narrowing the urethral meatus is normal in the urethra is normal along its length. Within the bladder the ureteral orifices in normal position with clear efflux. On the posterior right the to twin tumors are noted. There were multiple scars in the rest of the bladder but no other evidence of recurrence. At the end of the procedure the tumors were completely resected and hemostasis was good an [address] Gill catheter was left in place with 10 cc in the balloon. There were no other abnormalities noted. Closure Type: not applicable Specimen(s): other (Posterior right bladder tumor) Prosthetic devices, grafts, tissues, transplants, or devices: [address] catheter with 14 cc in the balloon Estimated Blood Loss (mL): 5 Blood products transfused: none Procedure in detail: Procedure in detail after informed consent was obtained, the patient was identified brought to the operating room where she was placed in supine position on the table. Once there anesthesia was induced to maintained. Ensuring an adequate level of anesthesia the patient was transitioned to the lithotomy position. Once there she was prepped, draped in his sterile fashion for Transurethral procedure. After ensuring an adequate level of anesthesia, time-out, prepping and draping and administration of antibiotics a 22 Maltese cystoscope was passed through the urethra and into of the bladder where cystoscopy was performed with the 30 and 70 degree lens. The biopsy resecting forceps was then put in place with a 12 degree lens and the tumors were sequentially resected. The more cephalad had a broader base in the more caudad had a near were carlos stem. These were resected completely. Bugbee electrode was then inserted and the base of the tumor and margin were fulgurated and hemostasis was achieved. The bladder was drained filled drained filled hemostasis appeared to be good scope was removed and the Gill catheter was placed without difficulty the balloon being filled with 14 cc of sterile water placed to gravity drainage till it was completely drained. At this point the chemotherapeutic catheter plug was inserted and the mitomycin instilled within the bladder. The catheter and plug were left in place. The patient had tolerated the procedure well she was awakened to be transferred to the postanesthesia care unit for recovery and mitomycin dwell time there were no complications. The tumor was forward to pathology for pathologic examination. Complications: none Post-operative Condition: stable Disposition: PACU Plan for aftercare: After the patient has recovered and awakened and the appropriate mitomycin dwell time the patient is to be discharged home with her Gill catheter.
[2024-02-01] MEDS: PHENAZOPYRIDINE 100 MG TABLET 200 MG PO (10:03)
[2024-02-01] MEDS: OXYBUTYNIN 5 MG TABLET PO (10:03)
== END 2024-02-01 12:05 | disposition home or self-care (01) ==
PROVIDERS: PCP Physician Assistant; Referring Provider Urology; Visit Provider Urology
PROC: 0TBB8ZZ Excision of Bladder, Via Natural or Artificial Opening Endoscopic (ICD-10-PCS; CPT 52235; principal; 2024-02-01 09:15)
DX: C67.9 Malignant neoplasm of bladder, unspecified (principal); Z87.891 Personal history of nicotine dependence; Z85.3 Personal history of malignant neoplasm of breast; Z87.440 Personal history of urinary (tract) infections
CPT/HCPCS: 52235; 82962; J0690; J1100; J2405; J2704; J3010

== ENCOUNTER → 2024-02-10 10:39 | Outpatient (CLI) | payer MEDICARE, OTHER, SELFPAY | PROVIDERS: PCP Physician Assistant; Visit Provider Urology | DX: C67.9 Malignant neoplasm of bladder, unspecified (principal); Z87.440 Personal history of urinary (tract) infections | CPT/HCPCS: 87077; 87086 ==

== ENCOUNTER → 2024-02-22 16:14 | Outpatient (CLI) | payer MEDICARE, OTHER, SELFPAY ==
[2024-02-24 09:47] LABS: Appearance Urine UA SL CLOUDY; Bilirubin Urine UA NEGATIVE (NEGATIVE); Color Urine UA YELLOW; Glucose Urine UA NEGATIVE (Negative); Ketones Urine UA NEGATIVE (NEGATIVE); Leukocyte Esterase Urine UA 2+ (NEGATIVE); Nitrite Urine UA POSITIVE (Negative); Occult Blood Urine UA 2+ (Negative); Protein Urine UA TRACE (Negative); Specific Gravity Urine UA 1.025 (1.000-1.035); Urobilinogen Urine UA 0.2 E.U./dL (0.2)
[2024-02-24 09:54] LABS: Bacteria Urine Moderate (10-30); Culture Indicated Urine Specimen Cultured; RBC Urine 10-30/HPF (0-5/HPF); Squamous Epithelial Cell Urine 1-5 /HPF (0-5/HPF); Urine Volume 10mL (spun); WBC Urine 30-100/HPF (0-5/HPF)
== END ==
PROVIDERS: PCP Physician Assistant; Visit Provider Urology
DX: R39.9 Unspecified symptoms and signs involving the genitourinary system (principal)
CPT/HCPCS: 81001; 87077; 87086; 87186

== ENCOUNTER → 2024-11-15 12:58 | Outpatient (CLI) | payer MEDICARE, OTHER, SELFPAY ==
[2024-11-15 13:11] LABS: Appearance Urine UA CLEAR; Bilirubin Urine UA NEGATIVE (NEGATIVE); Color Urine UA YELLOW; Glucose Urine UA NEGATIVE (Negative); Ketones Urine UA NEGATIVE (NEGATIVE); Leukocyte Esterase Urine UA NEGATIVE (NEGATIVE); Nitrite Urine UA NEGATIVE (Negative); Occult Blood Urine UA TRACE-INTACT (Negative); Protein Urine UA NEGATIVE (Negative); Specific Gravity Urine UA >=1.030 (1.000-1.035); Urobilinogen Urine UA 0.2 E.U./dL (0.2)
[2024-11-15 13:12] LABS: pH Urine UA 5.5 (4.5-8.0)
[2024-11-15 13:18] LABS: Culture Indicated Urine Cult Not Indicated
== END ==
PROVIDERS: PCP Physician Assistant; Referring Provider Urology; Visit Provider Urology
DX: R30.0 Dysuria (principal); Z87.440 Personal history of urinary (tract) infections
CPT/HCPCS: 81001